=== PATIENT | male | born 1980 | race Caucasian/White ===

== ENCOUNTER 2019-10-07 07:43 | Emergency (ER) | payer MEDICAID, OTHER ==
[~2019-10-07] VITALS: Ht 182.9 cm; Wt 69.5 kg
[2019-10-07] MEDS ORDERED: TAM75C PO (08:04)
[2019-10-07 08:16] VITALS: BP 132/84
== END 2019-10-07 08:18 | disposition home or self-care (01) ==
LOC: ER 07:44
DX: J11.1 Influenza due to unidentified influenza virus with other respiratory manifestations (principal); F17.210 Nicotine dependence, cigarettes, uncomplicated; Z79.899 Other long term (current) drug therapy
CPT/HCPCS: 99283